=== PATIENT | male | born 1980 | race Two or more races ===

== ENCOUNTER 2023-10-16 08:49 | Day surgery (SDC) | payer BC ==
[2023-10-16 09:02] LABS: Absolute Eosinophils 0.4 K/uL (0-0.5); Absolute Lymphocytes (CBC) 2.1 K/uL (0.7-4.9); Absolute Monocytes 0.8 K/uL (0.1-1.3); Absolute Neutrophil 3.8 K/uL (1.8-8.0); Basophils % 0.6 % (0-1.3); Eosinophils % 5.3 % (0-4.4); Hematocrit 46.1 % (39.6-49.0); Hemoglobin 15.2 g/dL (13.6-17.9); Lymphocytes % 29.1 % (15.3-44.8); MCH 27.8 pg (27.0-35.0); MCHC 32.9 g/dL (32.0-36.0); MCV 84.5 fL (80-100); MPV 8.3 fL (7.6-11.3); Monocytes % 11.1 % (3.3-12.3); Neutrophils % 53.9 % (41.7-73.7); Platelets 268 thou/uL (152-406); RBC Red Blood Cell Count 5.46 M/uL (4.33-5.43); Red Cell Distribution Width 15.4 % (12.1-15.2)
[2023-10-16 09:19] LABS: Albumin/Globulin Ratio 1.1 (1.1-1.8); Anion Gap 4.7 mEq/L (5.0-15.0); Bilirubin Total 0.6 mg/dL (0.2-1.0); Globulin 3.5 g/dL (2.3-3.5); Potassium 3.7 mEq/L (3.5-5.1); Protein, Total 7.5 g/dL (6.4-8.2)
[2023-10-16] MEDS: Ringers Lactate 1,000 ML IV ONE (09:50)
[2023-10-16 09:52] VITALS: O2SAT 99
[2023-10-16] MEDS ORDERED: LIDOCAINE 1% MPF 5 ML VIAL ONE (11:03)
[2023-10-16] MEDS ORDERED: propofoL 200 MG/20 ML VIAL IV ONE (11:03)
[2023-10-16 13:20] VITALS: BP 132/98; TEMP 97
--- NOTE | 2023-10-17 11:43 | EKG ---
Test Date: 2023-10-16 Test Time: 08:41:05 Clinical Applications Manager: YECENIA MEASUREMENT RESULTS: Intervals: Rate: 58 LA: 202 QRSD: 102 QT: 432 QTc: 424 [place]: P: 54 LA: 202 QRS: 120 T: 45 INTERPRETIVE STATEMENTS: Sinus bradycardia Right axis deviation Abnormal ECG No previous ECG available for comparison Electronically Signed On 10-17-23 11:43:15 CDT by Mega Loya
== END 2023-10-16 12:29 | disposition home or self-care (01) ==
LOC: OR 08:49
PROVIDERS: ATTEND Surgery
PROC: 0DB68ZX Excision of Stomach, Via Natural or Artificial Opening Endoscopic, Diagnostic (ICD-10-PCS; 2023-10-16)
PROC: 0DB48ZX Excision of Esophagogastric Junction, Via Natural or Artificial Opening Endoscopic, Diagnostic (ICD-10-PCS; 2023-10-16)
PROC: 0DB98ZX Excision of Duodenum, Via Natural or Artificial Opening Endoscopic, Diagnostic (ICD-10-PCS; principal; 2023-10-16 11:00)
DX: R11.2 Nausea with vomiting, unspecified (principal); R10.13 Epigastric pain; R13.19 Other dysphagia; K30 Functional dyspepsia; K21.9 Gastro-esophageal reflux disease without esophagitis; K29.60 Other gastritis without bleeding; K22.10 Ulcer of esophagus without bleeding; K31.1 Adult hypertrophic pyloric stenosis; K29.50 Unspecified chronic gastritis without bleeding; K21.00 Gastro-esophageal reflux disease with esophagitis, without bleeding
CPT/HCPCS: 93005; 85025; 36415; 88312; 88305; 80053; 43239; J2704; J2001; J7120